=== PATIENT | male | born 1935 | race Caucasian/White ===

== ENCOUNTER → 2016-10-19 | Outpatient (CLI) | payer OTHER, MEDICAID ==
--- NOTE | 2016-10-19 19:44 | DX ---
PA and Lateral Chest October 19, 2016 Indication: Cough. Comparison: Two views of the thoracic spine dated August 29, 2015. Findings: Smooth calcific densities scattered throughout the upper lung zones are unchanged since Aug and may represent small foci of calcified pleural plaque. Lungs are well-aerated and clear with mild diffuse peribronchial thickening. No pulmonary edema, consolidation, mass, or effusion. He art size is normal. Minimal kyphosis is unchanged. Impression: 1. Mild bronchitis. No pneumonia or mass. 2. 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
== END ==
LOC: FIMAGING 13:05
PROVIDERS: ATTEND Internal Medicine
DX: J98.4 Other disorders of lung (principal)